=== PATIENT | female | born 1965 | race Caucasian/White ===

== ENCOUNTER → 2022-09-16 13:20 | Outpatient (BNVA) | payer OTHER, SELFPAY | PROVIDERS: PCP Nurse Practitioner Family; Visit Provider Emergency Medicine | DX: S22.49XA Multiple fractures of ribs, unspecified side, initial encounter for closed fracture (principal); X58.XXXA Exposure to other specified factors, initial encounter | CPT/HCPCS: 71046 ==

== ENCOUNTER → 2022-11-19 12:45 | Outpatient (BNVA) | payer OTHER, SELFPAY | PROVIDERS: PCP Nurse Practitioner Family; Visit Provider Family Medicine | DX: S37.812A Contusion of adrenal gland, initial encounter (principal); E11.9 Type 2 diabetes mellitus without complications; X58.XXXA Exposure to other specified factors, initial encounter; S37.011A Minor contusion of right kidney, initial encounter | CPT/HCPCS: 80053; 85025 ==

== ENCOUNTER 2022-11-22 15:28 | Outpatient (CLI) | payer OTHER, SELFPAY ==
[2022-11-22] MEDS: iohexol 350 mg/mL 500 mL Btl (per mL) IV (15:50)
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
== END 2022-11-22 15:29 | disposition home or self-care (01) ==
LOC: RAD 15:31
PROVIDERS: PCP Nurse Practitioner Family; Visit Provider Family Medicine
DX: S37.019A Minor contusion of unspecified kidney, initial encounter (principal); S37.812A Contusion of adrenal gland, initial encounter; X58.XXXA Exposure to other specified factors, initial encounter
CPT/HCPCS: 74177; Q9967